=== PATIENT | female | born 1955 | race Caucasian/White ===

== ENCOUNTER 2022-04-17 08:14 | Day surgery (SDC) | payer MEDICARE, BC ==
[~2022-04-17] VITALS: Ht 162.6 cm; Wt 69.7 kg
[~2022-04-17 08:14] MED LIST: ESCI10 PO; ESTR2 PO; Estradiol1 MG PO; OMEP20ER PO; TRAZ100 PO; TRAZ50 PO; Toprol Xl25 MG PO
== END 2022-04-17 11:00 | disposition home or self-care (01) ==
LOC: ORSCSDS 08:14
PROVIDERS: Internal Medicine Gastroenterology
PROC: 0DJD8ZZ Inspection of Lower Intestinal Tract, Via Natural or Artificial Opening Endoscopic (ICD-10-PCS; principal; 2022-04-17 09:30)
DX: Z12.11 Encounter for screening for malignant neoplasm of colon (principal); Z86.010 Personal history of colon polyps; R12 Heartburn; Z79.899 Other long term (current) drug therapy
CPT/HCPCS: J2704; J7120

== ENCOUNTER → 2022-06-17 | Outpatient (CLI) | payer MEDICARE, BC | END | disposition home or self-care (01) | LOC: LAB SHORT 12:40 → LAB 12:40 | DX: J02.9 Acute pharyngitis, unspecified (principal) | CPT/HCPCS: 87081 ==

== ENCOUNTER 2022-08-21 12:49 | Day surgery (SDC) | payer MEDICARE, BC ==
[~2022-08-21] VITALS: Ht 162.6 cm; Wt 70.5 kg
[2022-08-21] MEDS ORDERED: Aspir 8181 MG PO (13:30)
[2022-08-21] MEDS ORDERED: ROSU5 PO (13:31)
--- NOTE | 2022-08-21 14:43 | NUR ---
08/21/22 1442 CHAITANYA RAMIREZ 0.1MG OF EPI ADDED TO 20MLS OF ROPIVACAINE 0.5% TO CREATE A LOCAL SOLUTION OF ROPIVACAINE 0.5% WITH EPI 1:200,000. LOCAL POURED ONTO STERILE FIELD FOR USE DURING CASE.
--- NOTE | 2022-08-21 15:57 | NUR ---
08/21/22 1557 BINTA GROSSMAN TRIAL FROM 10L O2 TO 5L. PT AWAKE BUT STATES SHE IS CONFUSED. O2 CURRENTLY 100%
== END 2022-08-21 16:51 | disposition home or self-care (01) ==
LOC: ORSCSDS 12:49
PROVIDERS: Podiatrist Foot & Ankle Surgery
PROC: 0MQR0ZZ Repair Left Ankle Bursa and Ligament, Open Approach (ICD-10-PCS; principal; 2022-08-21 14:15)
PROC: 0SBG4ZZ Excision of Left Ankle Joint, Percutaneous Endoscopic Approach (ICD-10-PCS; principal; 2022-08-21 14:15)
DX: M24.872 Other specific joint derangements of left ankle, not elsewhere classified (principal); M25.572 Pain in left ankle and joints of left foot; S93.492A Sprain of other ligament of left ankle, initial encounter; E78.00 Pure hypercholesterolemia, unspecified; Z79.899 Other long term (current) drug therapy; Z79.82 Long term (current) use of aspirin
CPT/HCPCS: C1713; J0171; J0690; J1100; J1885; J2250; J2405; J2704; J2765; J2795; J3010; J7120